=== PATIENT | female | born 1990 | race Caucasian/White ===

== ENCOUNTER 2016-11-14 21:22 | Emergency (ER) | payer BC ==
[2016-11-14 22:11] LABS: APPEARANCE,URINE SLIGHTLY-CLOUDY; BILIRUBIN,URINE NEGATIVE (NEGATIVE); GLUCOSE, URINE NEGATIVE (NEGATIVE); KETONES,URINE NEGATIVE (NEGATIVE); LEUKOCYTE ESTERASE,URINE MODERATE (NEGATIVE); NITRITE,URINE NEGATIVE (NEGATIVE); PROTEIN,URINE NEGATIVE (NEGATIVE); URINE SPECIFIC GRAVITY 1.018; UROBILINOGEN,URINE NEGATIVE mg/dL (<2.0)
--- NOTE | 2016-11-14 22:14 | RADIOLOGY REPORT (SQ) ---
EXAM DESCRIPTION: ANKLE RIGHT COMPLETE COMPLETED DATE/TIME: 11/14/2016 9:53 pm REASON FOR STUDY: right ankle pain/injury COMPARISON: None. NUMBER OF VIEWS: Three views. TECHNIQUE: AP, lateral, and oblique radiographic images acquired of the right ankle. LIMITATIONS: None. FINDINGS: MINERALIZATION: Normal. BONES: No acute fracture or dislocation. No worrisome bone lesions. JOINTS: No effusions. SOFT TISSUES: No soft tissue swelling. No foreign body. OTHER: No other significant finding. IMPRESSION: NEGATIVE STUDY OF THE RIGHT ANKLE. NO RADIOGRAPHIC EVIDENCE OF ACUTE INJURY. TECHNICAL DOCUMENTATION: JOB ID: [id number] [employer]- All Rights Reserved
[2016-11-15] MEDS ORDERED: CEPHALEXIN 500 MG CAPSULE PO ONE (00:37)
--- NOTE | 2016-11-15 00:43 | ER Document Report ---
HPI - HPI Patient complains to provider of: ankle pain, dysuria Pain Level: 4 Context: Patient is a 26-year-old female comes emergency department for chief complaint of right ankle pain and also for burning with urination. Right ankle pain has been going on for several weeks, she had an initial injury where she inverted her ankle and had swelling, she states this improved although she did not ice it , elevate it, or take any anti-inflammatories. She states yesterday she stood up quickly and had a pop with some pain and now it has increased painful walking. She denies any other locations of pain including flank pain, abdominal pain, pelvic pain. She reports burning with urination that started last night. She denies vaginal bleeding or discharge. She denies any daily medication other than control. - REPRODUCTIVE LMP: Reproductive: DENIES: : - DERM Skin Color: Normal Past Medical History - General Information source: Patient - Social History Smoking Status: Never Smoker Drug Abuse: None Lives with: Family Family History: None, Reviewed & Not Pertinent Pulmonary Medical History: Reports: Hx Asthma Renal/ Medical History: Denies: Hx Peritoneal Dialysis Past Surgical History: Reports: Hx Oral Surgery - [facility] 2012 - Immunizations Immunizations up to date: Yes Hx Diphtheria, Pertussis, Tetanus Vaccination: Yes Vertical Provider Document - CONSTITUTIONAL General Appearance: WD/WN, No Apparent Distress - INFECTION CONTROL TRAVEL OUTSIDE OF THE [place] IN LAST 30 DAYS: No - HEENT HEENT: Atraumatic, Normal ENT Exam, Normocephalic - NECK Neck: Normal Inspection - RESPIRATORY Respiratory: Breath Sounds Normal, No Respiratory Distress O2 Sat by Pulse Oximetry: 98 - CARDIOVASCULAR Cardiovascular: Regular Rate, Regular Rhythm - GI/ABDOMEN Gastrointestinal: Abdomen Soft, Abdomen Non-Tender - BACK Back: Normal Inspection. negative: CVA Tenderness-Right, CVA Tenderness-Left - MUSCULOSKELETAL/EXTREMETIES Musculoskeletal/Extremeties: Tender - There is mild tenderness over the dorsal and lateral aspect of the right foot and ankle, no obvious swelling, range of motion intact, negative Homans sign, normal capillary refill and sensation, normal leg, knee, hip exam otherwise. Course - Re-evaluation Re-evalutation: I reviewed and is negative. Urinalysis is not very impressive although patient is complaining specifically of dysuria. Unremarkable abdominal exam, no reported symptoms concerning for PID. Patient will be treated for dysuria, discussed treatment of ankle sprain, provided with crutches, Richardson wrap, anti- inflammatory, discussed follow-up, return precautions. Patient states understanding and agreement. - Vital Signs Vital signs: Temp Pulse Resp BP Pulse Ox 98.2 F 118 H 18 134/93 H 98 11/14/16 21:35 11/14/16 21:35 11/14/16 21:35 11/14/16 21:35 11/14/16 21:35 - Laboratory Laboratory results interpreted by me: 11/14/16 21:40 Urine Blood MODERATE H Ur Leukocyte Esterase MODERATE H Procedures - Immobilization right ankle Immobilizer type: Richardson wrap Performed by: PROMISE Post-Proc Neuro Vasc Exam: Normal Alignment checked and good: Yes Discharge - Discharge Clinical Impression: Dysuria Right ankle pain Qualifiers: Chronicity: acute Qualified Code(s): M25.571 - Pain in right ankle and joints of right foot Condition: Stable Disposition: HOME, SELF-CARE Instructions: Use of Crutches ([facility]), Ice & Elevation ([facility]), Richardson Wrap ([facility]) Additional Instructions: The x-ray of the ankle shows no concerning abnormality, examination is consistent with ligamentous injury and sprain. Elevate, apply ice to the area 3 -4 times a day for 10-15 minutes. Use crutches for the next 2-3 days, especially if going any significant distance. Take the prescribed anti- inflammatory. Take the Keflex antibiotic as directed for painful urination. Return to emergency department for any concerning worsening symptoms including vomiting, abdominal pain, fever, etc. Prescriptions: Cephalexin Monohydrate [Keflex 500 mg Capsule] 500 mg PO BID #10 capsule Naproxen 500 mg PO BID #20 tablet
[2016-11-15 01:42] VITALS: BP 128/86
== END 2016-11-15 01:40 | disposition home or self-care (01) ==
LOC: ER 21:22
DX: M25.571 Pain in right ankle and joints of right foot (principal); R30.0 Dysuria
CPT/HCPCS: 81001; 81025; 99283

== ENCOUNTER 2016-11-15 12:31 | Emergency (ER) | payer BC ==
[2016-11-15 12:44] VITALS: BP 129/83
[2016-11-15] MEDS ORDERED: OXYCODONE-ACETAMINOPHEN 5-325 MG TABLET PO ONE (13:49)
--- NOTE | 2016-11-15 13:53 | ER Document Report ---
HPI - HPI Onset: Yesterday Onset/Duration: Gradual, Constant Quality of pain: Dull Pain Level: 5 Associated Symptoms: None Exacerbated by: Denies Relieved by: Denies Recently seen / treated by doctor: Yes Notes: Patient is a 26-year-old female who is seen in the emergency department last night for right ankle pain and left flank pain. Patient diagnosed with UTI and given prescription for Naprosyn and Keflex. Patient filled her prescriptions this morning and has had 1 dose of Keflex. Patient presents to the emergency department this afternoon for continued left flank pain which has not improved. Patient states the Naprosyn does not help. No fevers or chills. No nausea vomiting. - REPRODUCTIVE Reproductive: DENIES: : - DERM Skin Color: Normal Past Medical History - General Information source: Patient, [facility] Records - Social History Smoking Status: Current Every Day Smoker Frequency of alcohol use: None Drug Abuse: None Family History: None, Reviewed & Not Pertinent Pulmonary Medical History: Reports: Hx Asthma Renal/ Medical History: Denies: Hx Peritoneal Dialysis Past Surgical History: Reports: Hx Oral Surgery - [facility] 2011 - Immunizations Immunizations up to date: Yes Hx Diphtheria, Pertussis, Tetanus Vaccination: Yes Vertical Provider Document - CONSTITUTIONAL Agree With Documented VS: Yes Exam Limitations: No Limitations General Appearance: WD/WN, No Apparent Distress - INFECTION CONTROL TRAVEL OUTSIDE OF THE [place] IN LAST 30 DAYS: No - HEENT HEENT: Normocephalic - NECK Neck: Normal Inspection - RESPIRATORY Respiratory: Breath Sounds Normal O2 Sat by Pulse Oximetry: 99 - GI/ABDOMEN Gastrointestinal: Abdomen Soft, Abdomen Non-Tender, Normal Bowel Sounds - MUSCULOSKELETAL/EXTREMETIES Musculoskeletal/Extremeties: Non-Tender Notes: Richardson wrap on right ankle - NEURO Level of Consciousness: Awake, Alert, Appropriate - DERM Integumentary: Warm, Dry Course - Re-evaluation Re-evalutation: 11/15/16 13:51 Review ED visit from yesterday. No indication to repeat UA. Patient has only had one dose of Keflex so far. Likely did not have time to work yet. Vital signs are normal tonight. Will give stronger pain medicine. Discussed need to return if starts vomiting, develop fevers, or is not better in 48 hours. - Vital Signs Vital signs: Temp Pulse Resp BP Pulse Ox 98.1 F 99 16 129/83 H 99 11/15/16 12:43 07/12/17 12:43 11/15/16 12:43 11/15/16 12:43 11/15/16 12:43 Discharge - Discharge Clinical Impression: UTI (urinary tract infection) Condition: Good Disposition: HOME, SELF-CARE Instructions: Urinary Tract Infection ([facility]) Additional Instructions: Continue on the Keflex as prescribed for your urinary tract infection. Follow- up with your primary care doctor. Return to the emergency department if you develop fevers, begin vomiting, or are not better after 48 hours of antibiotics. Prescriptions: Hydrocodone/Acetaminophen [[place] 5-325 mg Tablet] 1 tab PO QID PRN #15 tablet PRN Reason: Mild Pain
== END 2016-11-15 14:01 | disposition home or self-care (01) ==
LOC: ER 12:31
DX: N39.0 Urinary tract infection, site not specified (principal); J45.909 Unspecified asthma, uncomplicated; F17.200 Nicotine dependence, unspecified, uncomplicated
CPT/HCPCS: 99283

== ENCOUNTER → 2017-06-11 | Outpatient (CLI) | payer SELFPAY ==
--- NOTE | 2017-06-11 10:20 | RADIOLOGY REPORT (SQ) ---
EXAM DESCRIPTION: U/S [id number] TRNABD 1GES W/ODOP COMPLETED DATE/TIME: 06/11/2017 8:49 am REASON FOR STUDY: ENCTR FOR SUPERVISION OF OTHER NORMAL , 1ST TRIMESTER (Z34.81) Z34.81 EN COUNTER FOR SUPRVSN OF NORMAL , FIRST TRIM COMPARISON: None. TECHNIQUE: Transabdominal static and realtime grayscale images acquired of the pelvis. Additional se lected spectral and color Doppler images recorded. All images stored on PACs. bHCG: None available LIMITATIONS: None. FINDINGS: FETUS: Living intrauterine . EGA: By crown-rump length, 9 weeks 0 days ADAM: 01/14/2018 FHR: 173 beats per minute. SUBCHORIONIC BLEED: No SIZE OF BLEED: Not applicable. UTERUS: No masses. No anomalies. Uterus is 9.6 x 6 x 6.2 cm in size. CERVICAL LENGTH: Not well seen. RIGHT ADNEXA: Not well seen. Right adnexal bowel gas. LEFT ADNEXA: Normal ovary with normal vascular flow. 3.1 x 2.3 x 2.1 cm in size. No adnexal free fluid. No adnexal masses. FREE FLUID: None. OTHER: No other significant finding. IMPRESSION: LIVING INTRAUTERINE . EGA 9 weeks 0 days by crown-rump length Right ovary and cervix not well seen Trimester of : First - 0 to 13 weeks. TECHNICAL DOCUMENTATION: JOB ID: [id number] [employer]- All Rights Reserved
== END ==
LOC: RAD 07:59
PROVIDERS: ATTEND Nurse Practitioner Women's Health
DX: Z34.81 Encounter for supervision of other normal pregnancy, first trimester (principal)
CPT/HCPCS: 76801

== ENCOUNTER 2019-02-05 08:43 | Emergency (ER) | payer MEDICAID ==
[2019-02-05 09:39] LABS: APPEARANCE,URINE SLIGHTLY-CLOUDY; BILIRUBIN,URINE NEGATIVE (NEGATIVE); COLOR,URINE YELLOW; GLUCOSE, URINE NEGATIVE (NEGATIVE); KETONES,URINE NEGATIVE (NEGATIVE); LEUKOCYTE ESTERASE,URINE TRACE (NEGATIVE); NITRITE,URINE NEGATIVE (NEGATIVE); PROTEIN,URINE NEGATIVE (NEGATIVE); URINE SPECIFIC GRAVITY 1.028; UROBILINOGEN,URINE NEGATIVE mg/dL (<2.0)
[2019-02-05 09:51] LABS: ABSOLUTE BASOPHILS # (AUTO) 0.1 10^3/uL (0.0-0.2); ABSOLUTE EOSINOPHILS # (AUTO) 0.1 10^3/uL (0.0-0.6); ABSOLUTE LYMPHOCYTES (AUTO) 1.3 10^3/uL (0.5-4.7); ABSOLUTE MONOCYTES (AUTO) 0.7 10^3/uL (0.1-1.4); ABSOLUTE NEUT (AUTO) 6.8 10^3/uL (1.7-8.2); BASOPHILS % (AUTO) 0.6 % (0-2); EOSINOPHILS % (AUTO) 0.6 % (0-6); HEMATOCRIT 38.3 % (36.0-47.0); HEMOGLOBIN 12.8 g/dL (12.0-15.5); LYMPHOCYTES % (AUTO) 14.5 % (13-45); MEAN CORPUSCULAR HEMOGLOBIN 28.4 pg (27.0-33.4); MEAN CORPUSCULAR HGB CONC 33.6 g/dL (32.0-36.0); MEAN CORPUSCULAR VOLUME 85 fl (80-97); MONOCYTES % (AUTO) 7.7 % (3-13); PLATELET COUNT 371 10^3/uL (150-450); RED BLOOD COUNT 4.52 10^6/uL (3.72-5.28); RED CELL DISTRIBUTION WIDTH 13.9 % (11.5-14.0); SEGMENTED NEUTROPHILS % (AUTO) 76.6 % (42-78); TOTAL CELLS COUNTED % (AUTO) 100 %; WHITE BLOOD COUNT 8.9 10^3/uL (4.0-10.5)
[2019-02-05 10:16] LABS: ALBUMIN 4.2 g/dL (3.5-5.0); ALKALINE PHOSPHATASE 76 U/L (38-126); ANION GAP 9 (5-19); ASPARTATE AMINO TRANSFERASE 20 U/L (14-36); BILIRUBIN,DIRECT 0.1 mg/dL (0.0-0.4); BILIRUBIN,TOTAL 0.5 mg/dL (0.2-1.3); BLOOD UREA NITROGEN 11 mg/dL (7-20); CALCIUM 9.4 mg/dL (8.4-10.2); CARBON DIOXIDE 26 mmol/L (22-30); CHLORIDE 103 mmol/L (98-107); GLUCOSE 102 mg/dL (75-110); TOTAL PROTEIN 7.4 g/dL (6.3-8.2)
--- NOTE | 2019-02-05 10:42 | ER Document Report ---
ED General - General Chief Complaint: Epigastric Pain Stated Complaint: ABDOMINAL PAIN Time Seen by Provider: 02/05/19 09:10 Primary Care Provider: PAYTON MARTINEZ NP [Primary Care Provider] - Follow up as needed TRAVEL OUTSIDE OF THE [place] IN LAST 30 DAYS: No - HPI Notes: 28-year-old female who presents with 1 year of intermittent right upper quadrant and epigastric pain. Started again today, was especially severe this morning and associated with nausea and vomiting x1. Food and fluid, no coffee-ground hematemesis. She cannot relate any particular precipitant, not initially associate with food or fried or fatty foods. She has not sought follow-up for this in the past. Seen by the physician in triage prior to my evaluation. No other modifying factors, no other associated symptoms, no other provocative or palliative factors. - Related Data Allergies/Adverse Reactions: codeine Adverse Reaction (Severe, Verified 02/05/19 08:52) Hallucinations Past Medical History - Social History Smoking Status: Never Smoker Chew tobacco use (# tins/day): No Frequency of alcohol use: None Drug Abuse: None Family History: None, Reviewed & Not Pertinent Patient has suicidal ideation: No Patient has homicidal ideation: No - Medical History Medical History: Negative Pulmonary Medical History: Reports: Hx Asthma Renal/ Medical History: Denies: Hx Peritoneal Dialysis Past Surgical History: Reports: Hx Oral Surgery - [facility] 2012 - Immunizations Immunizations up to date: Yes Hx Diphtheria, Pertussis, Tetanus Vaccination: Yes Review of Systems - Review of Systems Notes: Review of systems as in the history of present illness, otherwise negative x 10 systems. Physical Exam - Notes Notes: General: Well developed . HEENT: Normocephalic, atraumatic. Pupils equal round reactive to light. No JVD. Chest: No trauma. Respiratory: Good air exchange, normal excursion. Cardiac: Regular rhythm. No murmurs or gallops. Abdomen: Soft, benign. Nondistended. Nontender. Back: No asymmetry or gross abnormality. Motor: Grossly normal power and tone. Neurologic: Alert, nonfocal. Cranial nerves II-12 are intact. Sensation intact. Vascular: Well perfused. Normal peripheral pulses. Skin: No petechiae or purpura. Course - Re-evaluation Re-evalutation: 02/05/19 10:41 28-year-old female with resolved abdominal pain, epigastric in nature. Broad differential diagnosis includes underlying gastritis, peptic ulcer disease, biliary tract disease, pancreatitis or other etiology. Patient was evaluated by the [facility] provider prior to my evaluation. Studies / interventions have been ordered by this provider and may still be pending. Add on additional ultrasound, reevaluate. 02/05/19 11:01 Labs reviewed, CBC unremarkable, chemistries LFTs and lipase are normal. Ultrasound is obtained and shows a single gallstone without any evidence of ac reba cholecystitis. Patient remains pain-free, given a prescription for analgesics and antiemetics a s needed, referred to [facility]. - Laboratory Result Diagrams: 02/05/19 09:37 02/05/19 09:37 Laboratory results interpreted by me: 02/05/19 09:15 Urine Blood MODERATE H Ur Leukocyte Esterase TRACE H Discharge - Discharge Clinical Impression: Biliary colic Condition: Good Disposition: HOME, SELF-CARE Instructions: Gallbladder Disease ([facility]) Prescriptions: Hydrocodone/Acetaminophen [Vicodin 5-300 mg Tablet] 1 each PO Q6 PRN #12 tablet PRN Reason: Ondansetron [Zofran Odt 4 mg Tablet] 1 - 2 tab PO Q4H PRN #15 tab.rapdis PRN Reason: For Nausea/Vomiting Referrals: PAYTON MARTINEZ NP [Primary Care Provider] - Follow up as needed HANS MULLEN MD [ACTIVE STAFF] - Follow up as needed
--- NOTE | 2019-02-05 10:55 | RADIOLOGY REPORT (SQ) ---
EXAM DESCRIPTION: U/S ABDOMEN LIMITED W/O DOP COMPLETED DATE/TIME: 02/05/2019 10:32 am REASON FOR STUDY: RUQ pain COMPARISON: None. TECHNIQUE: Dynamic and static grayscale images acquired of the abdomen and recorded on PACS. Additio nal selected color Doppler and spectral images recorded. LIMITATIONS: None. FINDINGS: PANCREAS: Visualized portions the pancreas are normal in appearance. LIVER: Echotexture is coarse with increased echogenicity consistent with fatty infiltration. LIVER VASCULATURE: Normal directional flow of the main portal vein and hepatic veins. GALLBLADDER: There is a gallstone in the neck of the gallbladder. Gallbladder wall is measured 3 mm upper limits of normal. ULTRASOUND-DETECTED BIRMINGHAM'S SIGN: Negative. INTRAHEPATIC DUCTS AND COMMON DUCT: CBD and intrahepatic ducts normal caliber. No filling defects. INFERIOR VENA CAVA: Normal flow. AORTA: No aneurysm. RIGHT KIDNEY: Normal size. Normal echogenicity. No solid or suspicious masses. No hydronephrosis. No calcifications. PERITONEAL AND RIGHT PLEURAL SPACE: No ascites or effusions. OTHER: No other significant finding. IMPRESSION: Gallstone. No pericholecystic edema or wall thickening. Negative sonographic Birmingham's sign. Fatty infiltration of the liver. TECHNICAL DOCUMENTATION: JOB ID: [id number] [employer]- All Rights Reserved Reading location - IP/workstation name: [email or web address]
[2019-02-05 11:17] VITALS: BP 116/85
== END 2019-02-05 11:17 | disposition home or self-care (01) ==
LOC: ER 08:43
DX: K80.20 Calculus of gallbladder without cholecystitis without obstruction (principal); R10.13 Epigastric pain; R10.11 Right upper quadrant pain; R11.2 Nausea with vomiting, unspecified; J45.909 Unspecified asthma, uncomplicated
CPT/HCPCS: 36415; 76705; 80053; 81001; 85025; 99284

== ENCOUNTER 2019-04-01 05:57 | Emergency (ER) | payer MEDICAID ==
[2019-04-01] MEDS: NORMAL SALINE 1000 ML 1,000 ML IV ONE ×2 (07:06→07:15)
[2019-04-01] MEDS: MORPHINE SULFATE 10 MG/ML INJ IV ONE ×2 (07:06→07:15)
[2019-04-01] MEDS: ONDANSETRON HCL INJ/PF 4 MG/2 ML SDV IV ONE ×2 (07:12→07:48)
[2019-04-01 07:42] LABS: APPEARANCE,URINE CLOUDY; BILIRUBIN,URINE NEGATIVE (NEGATIVE); COLOR,URINE YELLOW; GLUCOSE, URINE NEGATIVE (NEGATIVE); KETONES,URINE NEGATIVE (NEGATIVE); LEUKOCYTE ESTERASE,URINE LARGE (NEGATIVE); NITRITE,URINE NEGATIVE (NEGATIVE); PROTEIN,URINE NEGATIVE (NEGATIVE); URINE SPECIFIC GRAVITY 1.023; UROBILINOGEN,URINE NEGATIVE mg/dL (<2.0)
--- NOTE | 2019-04-01 07:42 | ER Document Report ---
ED GI/ - General Chief Complaint: Upper Abdominal Pain Stated Complaint: PAIN IN RIGHT SIDE Time Seen by Provider: 04/01/19 06:15 Notes: 28-year-old female present for right upper quadrant abdominal pain. Patient stated she has an appointment to have her gallbladder out on April 17. She was supposed to have it out on March 13 but had a panic attack that day and had to cancel her surgery. Patient complains of achy right upper quadrant pain rating to her right shoulder denies chest pain denies shortness of breath. Had nausea and vomiting. States it is starting to improve. The patient denies calf pain or leg swelling. Denies sore throat cough hemoptysis or gland swelling. Patient did eat a normal meal for dinner last night. TRAVEL OUTSIDE OF THE [place] IN LAST 30 DAYS: No - Related Data Allergies/Adverse Reactions: codeine Adverse Reaction (Severe, Verified 04/01/19 05:58) Hallucinations Home Medications: Zofran PRN Past Medical History - Social History Smoking Status: Never Smoker Family History: None, Reviewed & Not Pertinent Patient has suicidal ideation: No Patient has homicidal ideation: No Pulmonary Medical History: Reports: Hx Asthma Renal/ Medical History: Denies: Hx Peritoneal Dialysis Past Surgical History: Reports: Hx Oral Surgery - [facility] 2012 - Immunizations Immunizations up to date: Yes Hx Diphtheria, Pertussis, Tetanus Vaccination: Yes Review of Systems - Review of Systems Constitutional: denies: Chills, Fever Cardiovascular: No symptoms reported Gastrointestinal: Abdomen distended, Abdominal pain, Nausea, Vomiting. denies: Diarrhea, Constipation Genitourinary: No symptoms reported Musculoskeletal: No symptoms reported Skin: No symptoms reported Neurological/Psychological: No symptoms reported -: Yes All other systems reviewed and negative Physical Exam - Vital signs Vitals: Temp Pulse Resp BP Pulse Ox 97.9 F 102 H 18 137/77 H 98 04/01/19 06:01 04/01/19 06:01 04/01/19 06:01 04/01/19 06:01 04/01/19 06:01 - Notes Notes: GENERAL_APPEARANCE: well_nourished, alert, cooperative, appears anxious VITALS: reviewed, see vital signs table. HEAD: no_swelling\tenderness on the head. EYES: PERRL, EOMI, conjunctiva_clear. NOSE: no_nasal_discharge. MOUTH: (-)decreased moisture. THROAT: no_tonsilar_inflammation, no_airway_obstruction. no_lymphadenopathy NECK: supple, no_neck_tenderness, (-)thyromegaly. BACK: no_back_tenderness. CHEST_WALL: no_chest_tenderness. LUNGS: no_wheezing, no_rales, no_rhonchi, (-)accessory muscle use, good air exchange bilateral. HEART: normal_rate, normal_rhythm, normal_S1, normal_S2, (-)S3, (-)S4, no _murmur, no_rub. ABDOMEN: normal_BS, soft, right upper quadrant_abd_tenderness, (-)guarding, (-)rebound, no_organomegaly, no_abd_masses. EXTREMITIES: good pulses in all_extremities, no_swelling\tenderness in the extremities, no_edema. SKIN: warm, dry, good_color, no_rash. MENTAL_STATUS: speech_clear, oriented_X_3, normal_affect, responds_appropriately to questions. Course - Re-evaluation Re-evalutation: 04/01/19 07:41 28-year-old female presented right upper quadrant abdominal pain will recheck some labs get an ultrasound. The patient was supposed to have elective cholecystectomy on March 13 but had to cancel due to a panic attack. This was rescheduled for April 17 at [facility]. Patient was doing well up until last night she had a normal meal and then began having pain in the middle the night and is come here she is vomited several times. We will check lab work and ultrasound. We will get her pain under control. 04/01/19 09:15 Patient is pain-free after pain and nausea medicine. There is a large stone in the neck of the gallbladder but no LFT elevations. White count is 10. Patient is now pain-free I think it is appropriate for her to keep her appointment for her elective cholecystectomy. At this time I do not see anything that would compel me to think this is acute cholecystitis. I spoke with her at length about this she is more than happy to go home and keep the appointment she will be given prescription for Bentyl and Zofran. Awoke with her about a bland diet low-fat diet. - Vital Signs Vital signs: Temp Pulse Resp BP Pulse Ox 97.9 F 102 H 18 137/77 H 98 04/01/19 06:01 04/01/19 06:01 04/01/19 06:01 04/01/19 06:01 04/01/19 06:01 - Laboratory Result Diagrams: 04/01/19 07:19 04/01/19 07:19 Laboratory results interpreted by me: 04/01/19 04/01/19 07:00 07:19 WBC 10.9 H Urine Blood MODERATE H Ur Leukocyte Esterase LARGE H - Diagnostic Test Radiology reviewed: Reports reviewed Radiology results interpreted by me: 04/01/19 09:15 Abdomen Ultrasound 04/01/19 06:54 IMPRESSION: Cholelithiasis with 1.4 cm stone in the gallbladder neck. No secondary evidence of acute cholecystitis. Negative sonographic Birmingham's sign. Likely hepatic steatosis. Discharge - Discharge Clinical Impression: Gallstones, Biliary colic Condition: Good Disposition: HOME, SELF-CARE Instructions: Abdominal Pain ([facility]), Antispasmodics ([facility]), Gallbladder Disease ([facility]) Prescriptions: Dicyclomine HCl [Bentyl 20 mg Tablet] 20 mg PO QID #30 tablet Ondansetron [Zofran Odt 4 mg Tablet] 1 - 2 tab PO Q4H PRN #15 tab.rapdis PRN Reason: For Nausea/Vomiting
[2019-04-01 07:43] LABS: ABSOLUTE BASOPHILS # (AUTO) 0.1 10^3/uL (0.0-0.2); ABSOLUTE EOSINOPHILS # (AUTO) 0.1 10^3/uL (0.0-0.6); ABSOLUTE LYMPHOCYTES (AUTO) 2.8 10^3/uL (0.5-4.7); ABSOLUTE MONOCYTES (AUTO) 0.7 10^3/uL (0.1-1.4); ABSOLUTE NEUT (AUTO) 7.2 10^3/uL (1.7-8.2); BASOPHILS % (AUTO) 0.6 % (0-2); EOSINOPHILS % (AUTO) 1.1 % (0-6); HEMOGLOBIN 13.6 g/dL (12.0-15.5); LYMPHOCYTES % (AUTO) 25.4 % (13-45); MEAN CORPUSCULAR HEMOGLOBIN 28.9 pg (27.0-33.4); MEAN CORPUSCULAR HGB CONC 34.1 g/dL (32.0-36.0); MEAN CORPUSCULAR VOLUME 85 fl (80-97); MONOCYTES % (AUTO) 6.4 % (3-13); PLATELET COUNT 398 10^3/uL (150-450); RED BLOOD COUNT 4.71 10^6/uL (3.72-5.28); RED CELL DISTRIBUTION WIDTH 13.3 % (11.5-14.0); SEGMENTED NEUTROPHILS % (AUTO) 66.5 % (42-78); TOTAL CELLS COUNTED % (AUTO) 100 %; WHITE BLOOD COUNT 10.9 10^3/uL (4.0-10.5)
[2019-04-01 07:50] LABS: ALBUMIN 4.6 g/dL (3.5-5.0); ALKALINE PHOSPHATASE 80 U/L (38-126); ANION GAP 10 (5-19); ASPARTATE AMINO TRANSFERASE 21 U/L (14-36); BILIRUBIN,DIRECT 0.1 mg/dL (0.0-0.4); BILIRUBIN,TOTAL 0.5 mg/dL (0.2-1.3); BLOOD UREA NITROGEN 10 mg/dL (7-20); CALCIUM 9.7 mg/dL (8.4-10.2); CARBON DIOXIDE 24 mmol/L (22-30); CHLORIDE 105 mmol/L (98-107); GLUCOSE 100 mg/dL (75-110); POTASSIUM 4.2 mmol/L (3.6-5.0); TOTAL PROTEIN 7.9 g/dL (6.3-8.2)
--- NOTE | 2019-04-01 08:33 | RADIOLOGY REPORT (SQ) ---
EXAM DESCRIPTION: U/S ABDOMEN LIMITED W/O DOP COMPLETED DATE/TIME: 04/01/2019 7:43 am REASON FOR STUDY: RUQ PAIN COMPARISON: 02/05/2019 TECHNIQUE: Dynamic and static grayscale images acquired of the abdomen and recorded on PACS. Additio raffi selected color Doppler and spectral images recorded. LIMITATIONS: None. FINDINGS: PANCREAS: No masses. Visualized pancreatic duct normal caliber. LIVER: No masses. Coarsened increase echotexture suggestive of hepatic steatosis. LIVER VASCULATURE: Normal directional flow of the main portal vein and hepatic veins. GALLBLADDER: 1.4 cm gallstone within the neck. No wall thickening. No pericholecystic fluid. ULTRASOUND-DETECTED BIRMINGHAM'S SIGN: Negative. INTRAHEPATIC DUCTS AND COMMON DUCT: CBD and intrahepatic ducts normal caliber. No filling defects. INFERIOR VENA CAVA: Normal flow. AORTA: No aneurysm. RIGHT KIDNEY: Normal size. Normal echogenicity. No solid or suspicious masses. No hydronephrosis. No calcifications. PERITONEAL AND RIGHT PLEURAL SPACE: No ascites or effusions. OTHER: No other significant findings. IMPRESSION: Cholelithiasis with 1.4 cm stone in the gallbladder neck. No secondary evidence of acut e cholecystitis. Negative sonographic [place]'s sign. Likely hepatic steatosis. TECHNICAL DOCUMENTATION: JOB ID: [id number] [employer]- All Rights Reserved Reading location - IP/workstation name: [email or web address]
[2019-04-01 09:27] VITALS: BP 126/75
== END 2019-04-01 09:29 | disposition home or self-care (01) ==
LOC: ER 05:57
DX: K80.70 Calculus of gallbladder and bile duct without cholecystitis without obstruction (principal); R10.11 Right upper quadrant pain; R11.2 Nausea with vomiting, unspecified; Z88.6 Allergy status to analgesic agent
CPT/HCPCS: 99284; 96361; 96374; 96375; 36415; 83690; 85025; 80053; 81001; 76705; J2270; J2405; J7030